=== PATIENT | male | born 1930 | race African-American/Black ===

== ENCOUNTER → 2016-09-21 | Outpatient (CLI) | payer MEDICARE, OTHER ==
--- NOTE | 2016-09-21 17:08 | RADIOLOGY REPORT (SQ) ---
EXAM DESCRIPTION: CHEST PA/LAT COMPLETED DATE/TIME: 09/21/2016 4:56 pm REASON FOR STUDY: RIB PAIN COMPARISON: Two-view chest 08/13/2015, 08/03/2007 EXAM PARAMETERS: NUMBER OF VIEWS: two views TECHNIQUE: Digital Frontal and Lateral radiographic views of the chest acquired. RADIATION DOSE: NA LIMITATIONS: none FINDINGS: LUNGS AND PLEURA: Lingular atelectasis versus pneumonia, with minimal airspace disease of the cardiac apex on frontal view. Trace left pleural effusion blunting the lateral and posterior costophrenic sulci. Right lung clear. No right pleural effusion. No right or left pneumothorax. MEDIASTINUM AND HILAR STRUCTURES: No masses or contour abnormalities. HEART AND VASCULAR STRUCTURES: Heart normal size. No evidence for failure. BONES: No acute findings. HARDWARE: None in the chest. OTHER: No other significant finding. IMPRESSION: Focal airspace disease in the lingula with trace left pleural effusion. Findings could represent early or developing pneumonia. Small pulmonary infarct from pulmonary embolus could also m imic this appearance. TECHNICAL DOCUMENTATION: JOB ID: [id number] [employer]- All Rights Reserved
== END ==
LOC: RAD 16:36
PROVIDERS: ATTEND Family Medicine
DX: R07.81 Pleurodynia (principal)
CPT/HCPCS: 71020

== ENCOUNTER 2017-12-22 07:24 | Emergency (ER) | payer MEDICARE, OTHER ==
--- NOTE | 2017-12-22 07:42 | ER Document Report ---
ED Cardiac - General Chief Complaint: Chest Tightness Stated Complaint: CHEST PAIN Time Seen by Provider: 12/22/17 07:34 Mode of Arrival: Ambulatory Information source: Patient TRAVEL OUTSIDE OF THE [place] IN LAST 30 DAYS: No - HPI Patient complains to provider of: Other - 87-year-old man with a history of hypertension as well as hyperlipidemia that presents for evaluation of pain in the left side of his chest which he woke up with this morning. Yesterday he was cutting a part of tree with a chain saw in his yard and exerting himself a bit more than usual but is gone to sleep in his usual state of health. The pain feels like an aching heavy sensation along the left side of his chest, he has not taken anything other than his normal home medications since it started. Denies any history of heart attack or known heart failure or history of stroke , he is never really had any pain like this in the past. Denies fever, chills, cough, lightheadedness, dizziness, diaphoresis, nausea, abdominal pain, diarrhea , constipation, dysuria rashes or other symptoms. - Related Data Allergies/Adverse Reactions: No Known Allergies Allergy (Verified 12/22/17 07:25) Past Medical History - General Information source: Patient - Social History Smoking Status: Former Smoker Chew tobacco use (# tins/day): No Frequency of alcohol use: None Drug Abuse: None Family History: Reviewed & Not Pertinent Patient has suicidal ideation: No Patient has homicidal ideation: No - Past Medical History Cardiac Medical History: Reports: Hx Hypercholesterolemia, Hx Hypertension Denies: Hx Heart Attack Pulmonary Medical History: Denies: Hx Asthma Neurological Medical History: Denies: Hx Cerebrovascular Accident, Hx Seizures Renal/ Medical History: Denies: Hx Peritoneal Dialysis Malignancy Medical History: Reports Hx Prostate Cancer GI Medical History: Denies: Hx Hepatitis, Hx Hiatal Hernia, Hx Ulcer Psychiatric Medical History: Denies: Hx Depression Infectious Medical History: Denies: Hx Hepatitis Past Surgical History: Denies: Hx Open Heart Surgery, Hx Pacemaker - Immunizations Immunizations up to date: Yes Review of Systems - Review of Systems -: Yes All other systems reviewed and negative Physical Exam - Vital signs Vitals: Temp Pulse Resp BP Pulse Ox 98.0 F 52 L 18 177/67 H 98 12/22/17 07:36 12/22/17 07:36 12/22/17 07:36 12/22/17 07:36 12/22/17 07:36 - General General appearance: Appears well In distress: None - HEENT Head: Normocephalic Eyes: Normal Conjunctiva: Normal Cornea: Normal Extraocular movements intact: Yes Eyelashes: Normal Pupils: PERRL - Respiratory Respiratory status: No respiratory distress Chest status: Nontender Breath sounds: Normal Chest palpation: Normal - Cardiovascular Rhythm: Regular Heart sounds: Normal auscultation Murmur: Yes Systolic murmur grade 1-6: 3 - Flow murmur heard best at the sternal border - Abdominal Inspection: Normal Distension: No distension Tenderness: Nontender - Back Back: Normal - Extremities General upper extremity: Normal inspection, Nontender, Normal ROM, Normal strength General lower extremity: Normal inspection, Nontender, Normal ROM, Normal strength - Neurological Neuro grossly intact: Yes Cognition: Normal Orientation: AAOx4 [place] Coma Scale Eye Opening: Spontaneous [place] Coma Scale Verbal: Oriented [place] Coma Scale Motor: Obeys Commands Jeannie Coma Scale Total: 15 Speech: Normal Cranial nerves: Normal Motor strength normal: LUE, RUE, LLE, RLE - Psychological Associated symptoms: Normal affect Course - Re-evaluation Re-evalutation: 12/22/17 07:58 This is a very pleasant 87-year-old man with atraumatic pain along the left side of his chest. He went to sleep in his usual state of health but woke up with an aching pain along the left side of his chest which he says feels like it could be a muscle. This is a gentleman who does have a history of hypertension as well as hyperlipidemia and a known left bundle branch block, he is been followed in the past and is never had heart attack that he knows of. His pain is nonreproducible, there is no exertional component. As this 87-year-old man does have multiple risk factors will proceed with a cardiac workup including troponin x2, cardiac monitoring, EKG, administration of aspirin chest x-ray and reassessment frequently. He does have evidence of a systolic flow murmur suggestive of possible aortic stenosis. 12/22/17 11:13 Initial troponin is positive at 0.08 his CK-MB is markedly elevated at greater than 7. Will initiate administration of nitroglycerin as he is still having some chest pain, will also treat with fentanyl for pain. Have contacted [facility] for evaluation of this patient as he has seen a cloth finisher there in the past. He is known to be bradycardic at this time of the mid 40s but is asymptomatic, remains with normal blood pressures and a normal level of consciousness. Will defer aggressive pacing at this time. Has spoken to the hospitalist who agrees to admit this patient, will admit them to a monitored telemetry bed. Will repeat troponin now. Repeat troponin is 0.07. will initiate heparin as patient is continuing to have active pain at this time and I am concerned this may represent an ongoing insult. Updated [facility] about patient's troponin. Initiated heparin for this patient. Will continue to monitor emergency department and reassess. - Vital Signs Vital signs: Temp Pulse Resp BP Pulse Ox 98.0 F 52 L 11 L 141/61 H 98 12/22/17 07:36 12/22/17 07:36 12/22/17 10:36 12/22/17 10:36 12/22/17 10:36 - Laboratory Result Diagrams: 12/22/17 07:58 12/22/17 07:58 Laboratory results interpreted by me: 12/22/17 12/22/17 12/22/17 07:58 07:58 07:58 WBC 3.0 L Hgb 12.1 L Hct 35.9 L MCV 79 L MCH 26.5 L RDW 14.8 H BUN 32 H Creatinine 2.16 H Est GFR ( Amer) 35 L Est GFR (Non-Af Amer) 29 L Creatine Kinase 801 H CK-MB (CK-2) 7.12 H - Diagnostic Test Radiology reviewed: Image reviewed - Chest x-ray appears modestly improved from previous, his previous demonstrated an infiltrate in the lingula, this does not demonstrate any obvious infiltrate, no obvious focal airspace disease - EKG Interpretation by [place] EKG shows normal: Sinus rhythm - sinus rhythm 54 bpm, left axis deviation, incomplete left bundle branch block, first-degree AV block Discharge - Discharge Clinical Impression: NSTEMI (non-ST elevated myocardial infarction), LBBB (left bundle branch block) , Bradycardia Chest pain Qualifiers: Chest pain type: unspecified Qualified Code(s): R07.9 - Chest pain, unspecified Condition: Stable Disposition: [facility] Referrals: ELENA HOLBROOK DO [Primary Care Provider] - Follow up as needed
[2017-12-22] MEDS ORDERED: ASPIRIN 81 MG TABLET, CHEWABLE PO ONE (07:55)
[2017-12-22 08:21] LABS: ABSOLUTE EOSINOPHILS # (AUTO) 0.2 10^3/uL (0.0-0.6); ABSOLUTE LYMPHOCYTES (AUTO) 0.6 10^3/uL (0.5-4.7); ABSOLUTE MONOCYTES (AUTO) 0.3 10^3/uL (0.1-1.4); ABSOLUTE NEUT (AUTO) 1.9 10^3/uL (1.7-8.2); HEMATOCRIT 35.9 % (37.9-51.0); HEMOGLOBIN 12.1 g/dL (13.5-17.0); MEAN CORPUSCULAR HEMOGLOBIN 26.5 pg (27.0-33.4); MEAN CORPUSCULAR HGB CONC 33.6 g/dL (32.0-36.0); MEAN CORPUSCULAR VOLUME 79 fl (80-97); MONOCYTES % (AUTO) 10.8 % (3-13); PLATELET COUNT 177 10^3/uL (150-450); RED BLOOD COUNT 4.55 10^6/uL (4.35-5.55); RED CELL DISTRIBUTION WIDTH 14.8 % (11.5-14.0); SEGMENTED NEUTROPHILS % (AUTO) 62.2 % (42-78); TOTAL CELLS COUNTED % (AUTO) 100 %
--- NOTE | 2017-12-22 08:32 | RADIOLOGY REPORT (SQ) ---
EXAM DESCRIPTION: CHEST SINGLE VIEW COMPLETED DATE/TIME: 12/22/2017 8:18 am REASON FOR STUDY: chest pain COMPARISON: 09/21/2016 EXAM PARAMETERS: NUMBER OF VIEWS: One view. TECHNIQUE: Single frontal radiographic view of the chest acquired. RADIATION DOSE: NA LIMITATIONS: None. FINDINGS: LUNGS AND PLEURA: Stable scarring in the left base. No evidence of pulmonary edema or pne umonia. MEDIASTINUM AND HILAR STRUCTURES: No masses. Contour normal. HEART AND VASCULAR STRUCTURES: Heart normal in size. Normal vasculature. BONES: No acute findings. HARDWARE: None in the chest. OTHER: No other significant finding. IMPRESSION: NO ACUTE RADIOGRAPHIC FINDING IN THE CHEST. TECHNICAL DOCUMENTATION: JOB ID: [id number] [employer]- All Rights Reserved Reading location - IP/workstation name: [email or web address]
[2017-12-22 08:45] LABS: ALANINE AMINOTRANSFERASE 27 U/L (21-72); ALBUMIN 4.3 g/dL (3.5-5.0); ALKALINE PHOSPHATASE 45 U/L (38-126); ANION GAP 10 (5-19); ASPARTATE AMINO TRANSFERASE 45 U/L (17-59); BILIRUBIN,DIRECT 0.3 mg/dL (0.0-0.4); BILIRUBIN,TOTAL 0.5 mg/dL (0.2-1.3); BLOOD UREA NITROGEN 32 mg/dL (7-20); CALCIUM 9.5 mg/dL (8.4-10.2); CARBON DIOXIDE 27 mmol/L (22-30); CHLORIDE 105 mmol/L (98-107); CREATINE KINASE 801 U/L (55-170); GLUCOSE 109 mg/dL (75-110); POTASSIUM 4.6 mmol/L (3.6-5.0); SODIUM 141.9 mmol/L (137-145); TOTAL PROTEIN 7.3 g/dL (6.3-8.2)
[2017-12-22 08:57] LABS: CREATINE KINASE MB 7.12 ng/mL (<4.55)
[2017-12-22 09:10] LABS: TROPONIN I 0.08 ng/mL
[2017-12-22] MEDS ORDERED: NORMAL SALINE 1000 ML 1,000 ML IV ONE (09:26)
[2017-12-22] MEDS: NITROGLYCERIN 0.4 MG/TAB 25 TAB/BOTTLE SL PRN ×2 (09:37→10:19)
[2017-12-22] MEDS ORDERED: FENTANYL CITRATE INJ/PF 100 MCG/2 ML AMPUL IV ONE (10:28)
[2017-12-22] MEDS ORDERED: HEPARIN SOD (PORCINE) 1,000 UNIT/ML 10 ML VIAL IV ONE (11:05)
[2017-12-22] MEDS ORDERED: HEPARIN SODIUM,PORCINE/D5W 25,000 UNIT/250 ML RTUINJ IV PRN (11:05)
[2017-12-22 11:56] LABS: INTERNATIONAL RATION (INR) 0.85; PARTIAL THROMBOPLASTIN TIME 32.4 SEC (23.5-35.8)
--- NOTE | 2017-12-22 12:52 | EKG REPORT ---
SEVERITY:- ABNORMAL ECG - SINUS RHYTHM LEFT ANTERIOR FASCICULAR BLOCK : Confirmed by: Roger Guidry MD 22-Dec-2017 12:51:14
[2017-12-22 13:14] VITALS: BP 168/65
--- NOTE | 2017-12-22 13:19 | ER Document Report ---
Doctor's Note Notes: 12/22/17 13:19 Reassessed patient, transport team present to transport patient to [facility], his chest is feeling better at this time. He remains having normal blood pressure, his heart rate continues to be in the mid 40s. He is currently on a heparin infusion. He otherwise appears stable for transport at this time.
[2017-12-22] MEDS ORDERED: HEPARIN SOD (PORCINE) 1,000 UNIT/ML 10 ML VIAL IV PRN (14:06)
== END 2017-12-22 13:32 | disposition short-term general hospital (02) ==
LOC: ER 07:24
DX: I21.4 Non-ST elevation (NSTEMI) myocardial infarction (principal); I44.7 Left bundle-branch block, unspecified; R07.9 Chest pain, unspecified; E78.5 Hyperlipidemia, unspecified; I10 Essential (primary) hypertension
CPT/HCPCS: 93005; 96376; 99285; 96361; 96375; 96365; 96366; 36415; 82553; 82550; 85025; 85610; 85730; 80053; 84484; 71045; 93010; J1644 ×2; A9270; J3010; J7030